=== PATIENT | female | born 1955 | race Hispanic/Latino ===

== ENCOUNTER 2017-05-24 20:29 | Inpatient (IN) | payer MEDICAID ==
--- NOTE | 2017-05-24 20:51 | C.PDOC ---
History Of Present Illness 62 year old female with a Hx of HTN and diabetes who presents to the ER with a complaint of feeling SOB on exertion over the past few days that has been progressively getting worse. Patient states she feels winded when attempting to walk and notes she has a Hx of "bronchitis" but denies ever having a Hx of asthma or symptoms of wheezing. Patient also reports she has had pain and swelling to the feet that is better in the mornings but progressively worsens throughout the day. Patient denies symptoms of chest pain, nausea, or vomiting. Patient's PMD is Dr. Davenport who she last saw a few weeks ago. Time Seen by Provider: 05/24/17 20:37 Chief Complaint (Nursing): Shortness Of Breath History Per: Patient History/Exam Limitations: no limitations Onset/Duration Of Symptoms: Days Current Symptoms Are (Timing): Still Present Initiating Event: Other (Not known) Exacerbating Factor(s): Other (Walking) Current Respiratory Medications: None Associated Symptoms: denies: Fever, Chills, Chest Pain, Dizziness, Light- headedness Recent travel outside of the [place] States: No Past Medical History Reviewed: Historical Data, Nursing Documentation, Vital Signs Vital Signs: Last Vital Signs Temp 98.2 F 05/24/17 20:32 Pulse 106 H 05/24/17 23:29 Resp 21 05/24/17 23:29 BP 115/74 05/24/17 23:29 Pulse Ox 96 05/25/17 00:02 - Medical History PMH: Bronchitis, Hypercholesterolemia Surgical History: No Surg Hx Family History: States: No Known Family Hx - Social History Hx Alcohol Use: No Hx Substance Use: No - Immunization History Hx Tetanus Toxoid Vaccination: No Hx Influenza Vaccination: Yes Hx Pneumococcal Vaccination: Yes Review Of Systems Except As Marked, All Systems Reviewed And Found Negative. Constitutional: Negative for: Fever, Chills, Sweats Cardiovascular: Negative for: Chest Pain Respiratory: Positive for: SOB with Excertion Gastrointestinal: Negative for: Nausea, Vomiting, Abdominal Pain, Diarrhea Physical Exam - Physical Exam Appears: Non-toxic, No Acute Distress, Other (very anxious and talking in complete sentences ) Skin: Normal Color, Warm, Dry Head: Atraumatic, Normacephalic Oral Mucosa: Moist Neck: Supple Chest: Symmetrical Cardiovascular: Rhythm Regular (tachycardic) Respiratory: Normal Breath Sounds, No Rales, No Rhonchi, No Wheezing Gastrointestinal/Abdominal: Soft, No Tenderness, No Guarding, No Rebound Extremity: Normal ROM, Pedal Edema (mild +1 nonpitting), Capillary Refill (< 2sec.) Neurological/Psych: Oriented x3, Normal Speech, Normal Cognition Gait: Steady ED Course And Treatment - Laboratory Results Result Diagrams: 05/24/17 21:18 05/24/17 21:18 Lab Interpretation: Abnormal (WBC 13.5, D-dimer 3105, BNP 5650, troponin normal) ECG: Interpreted By Me ECG Rhythm: Sinus Tachycardia (with poor R wave progression V1-5, Q wave III, AVF) ECG Interpretation: Abnormal O2 Sat by Pulse Oximetry: 96 (RA) Pulse Ox Interpretation: Normal - Radiology CXR: Interpreted by Me CXR Interpretation: Yes: Mediastinum (wide with fullnes in hilum bilaterally) - CT Scan/US CTA Other Rad Studies (CT/US): Read By Radiologist, Radiology Report Reviewed CT/US Interpretation: EXAM: CT Chest With Intravenous Contrast. CLINICAL HISTORY: 62 years old, female; Signs and symptoms; Shortness of breath; Additional info: SOB, tachycardia,. elevated d-dimer. TECHNIQUE: Axial computed tomography images of the chest with intravenous contrast during the arterial phase. of enhancement. All CT scans at this facility use one or more dose reduction techniques, viz.: automated exposure control; ma/kV adjustment per patient size (including targeted exams where. dose is matched to indication ; i.e. head); or iterative reconstruction technique. Coronal and sagittal reformatted images were created and reviewed. CONTRAST: 100 mL of VISIPAQUE 320 administered intravenously. COMPARISON: No relevant prior studies available. FINDINGS: Pulmonary arteries: Multiple filling defects within main , lobar, segmental, subsegmental branches. Saddle embolus. Aorta: No aneurysm. No dissection. Lungs: No consolidation. Pleural space: No significant effusion. No pneumothorax. Heart: No cardiomegaly. Trace focal pericardial effusion. Bones/joints: No acute fracture. No dislocation. Soft tissues: Unremarkable. Lymph nodes: No pathologically enlarged lymph nodes. Liver: Too small to characterize lesion. IMPRESSION: 1. Multiple pulmonary emboli with saddle embolus. 2. Incidental/non-acute findings are described above. Progress Note: The patient received EKG, Blood work,UA and CxR. Reevaluation Time: 00:00 Reassessment Condition: Unchanged - Physician Consult Information Outcome Of Conversation: Case discussed with Dr Stone and Dr Francis. Patient to be admitted to ICU for bilateral PE with saddle embolus. Disposition - Disposition Disposition: HOSPITALIZED Disposition Time: 00:09 Condition: SERIOUS - POA Present On Arrival: None - Clinical Impression Clinical Impression: Pulmonary embolism - Scribe Statement The provider has reviewed the documentation as recorded by the Scribjarred Monge All medical record entries made by the Tarahibjarred were at my direction and personally dictated by me. I have reviewed the chart and agree that the record accurately reflects my personal performance of the history, physical exam, medical decision making, and the department course for this patient. I have also personally directed, reviewed, and agree with the discharge instructions and disposition.
[2017-05-24 21:23] LABS: BASO # 0.1 K/uL (0.0-0.2); BASO % 0.6 % (0.0-2.0); EOS # 0.2 K/uL (0.0-0.7); EOS % 1.2 % (0.0-4.0); LYMPH # 3.7 K/uL (1.0-4.3); LYMPH % 27.2 % (20.0-40.0); MEAN CELL VOLUME 85.1 fL (81.0-99.0); MEAN CORPUSCULAR HEMOGLOBIN 28.7 pg (27.0-31.0); MEAN CORPUSCULAR HGB CONC 33.7 g/dL (33.0-37.0); MEAN PLATELET VOLUME 7.4 fL (7.2-11.7); MONO # 0.8 K/uL (0.0-0.8); MONO % 5.7 % (0.0-10.0); NRBC % 0.1 % (0.0-2.0); RED CELL DISTRIBUTION WIDTH 14.7 % (11.5-14.5); WHITE BLOOD COUNT 13.5 K/uL (4.8-10.8)
[2017-05-24 21:29] LABS: CHLORIDE 105 mmol/L (98-107)
[2017-05-24 21:30] LABS: POTASSIUM 3.4 mmol/L (3.6-5.2); SODIUM 145 mmol/L (132-148)
[2017-05-24 21:32] LABS: ALB/GLOB RATIO 1.2 (1.0-2.1); AST/SGOT 30 U/L (14-36); BILIRUBIN,TOTAL 0.4 mg/dL (0.2-1.3); CARBON DIOXIDE 24 mmol/L (22-30); GFR AFRICAN-AMERICAN > 60; TOTAL PROTEIN 7.8 g/dL (6.3-8.3)
[2017-05-24 21:33] LABS: ALKALINE PHOSPHATASE 96 U/L (38-126); ALT/SGPT 33 U/L (9-52); BLOOD UREA NITROGEN 11 mg/dL (7-17); CALCIUM 9.1 mg/dl (8.6-10.4); GLUCOSE,RANDOM 104 mg/dL (65-105)
[2017-05-24] MEDS ORDERED: Iodixanol 320 MG/ML 100 ML BOTTLE IV ONE (22:26)
[2017-05-24 22:52] LABS: RBC URINE 1 /hpf (0-3); TRANSITIONAL EPITHIAL < 1 /hpf (0-3); URINE BACTERIA RARE (<OCC); URINE BILIRUBIN NEGATIVE (NEGATIVE); URINE BLOOD NEGATIVE (NEGATIVE); URINE COLOR Yellow (YELLOW); URINE GLUCOSE (UA) NORMAL (Normal); URINE KETONE NEGATIVE (NEGATIVE); URINE LEUKOCYTE ESTERASE 1+ Leu/uL (Negative); URINE PROTEIN 1+ mg/dL (NEGATIVE); URINE UROBILINOGEN NORMAL mg/dL (0.2-1.0); WBC URINE 6 /hpf (0-5)
--- NOTE | 2017-05-24 23:34 | CT ---
EXAM: CT Chest With Intravenous Contrast CLINICAL HISTORY: 62 years old, female; Signs and symptoms; Shortness of breath; Additional info: SOB, tachycardia, elevated d-dimer TECHNIQUE: Axial computed tomography images of the chest with intravenous contrast during the arterial phase of enhancement. All CT scans at this facility use one or more dose reduction techniques, viz.: automated exposure control; ma/kV adjustment per patient size (including targeted exams where dose is matched to indication; i.e. head); or iterative reconstruction technique. Coronal and sagittal reformatted images were created and reviewed. CONTRAST: 100 mL of VISIPAQUE 320 administered intravenously. COMPARISON: No relevant prior studies available. FINDINGS: Pulmonary arteries: Multiple filling defects within main, lobar, segmental, subsegmental branches. Saddle embolus. Aorta: No aneurysm. No dissection. Lungs: No consolidation. Pleural space: No significant effusion. No pneumothorax. Heart: No cardiomegaly. Trace focal pericardial effusion. Bones/joints: No acute fracture. No dislocation. Soft tissues: Unremarkable. Lymph nodes: No pathologically enlarged lymph nodes. Liver: Too small to characterize lesion. IMPRESSION: 1. Multiple pulmonary emboli with saddle embolus. 2. Incidental/non-acute findings are described above. THIS REPORT CONTAINS FINDINGS THAT MAY BE CRITICAL TO PATIENT CARE. The findings were verbally communicated via telephone conference with Farzaneh Harris at 11:34 PM EDT on 05/24/2017. The findings were acknowledged and understood.
[2017-05-24] MEDS ORDERED: Heparin25000 units/250ml 1/2NS 250 ML IV ONE (23:50)
[2017-05-24] MEDS ORDERED: Heparin25000 units/250ml 1/2NS 25,000 UNITS/250 ML BAG IV PRN (23:59)
[2017-05-25 00:22] LABS: INR 1.2
--- NOTE | 2017-05-25 01:33 | CP.PCM.CON ---
History of Present Illness - History of Present Illness History of Present Illness: 62 F with h/o NIDDM, hyperlypidimia came to ER due to SOB started last afternoon , felt very sob, holding wall of the store where she was, felt some dizzy. In ER patient was tachycardic, positive Ddimer. CTA done showed saddle embolus, RV appears dialated cavity then LV. BP has been maintained, hr sinus 110-120b/m. Patient since presented to ER has also been mentioning that she may have to leave in the morning to feed her cats but agrees to stay overnight. Denies any recent immobility, had some mild diarrhea, complains of chronic pain for 1-2 months in the right calf. Patient also mentions her father form blood clot travelling form the back of the leg to chest. PMH as above Meds for dm 2 pills, for hypelipidimia Allergies NKDA Family history father of PE, mom had type 1 dm, blindness, cad, from CAD age 52 Social denies smoking, social drinking, denies drugs. Review of Systems - Review of Systems All systems: reviewed and no additional remarkable complaints except (HPI) Past Patient History - Infectious Disease Hx of Infectious Diseases: None - Past Social History Smoking Status: Never Smoked Alcohol: Occasional Home Situation {Lives}: Alone (with cats) Domestic Violence: Negative - CARDIAC Hx Hypercholesterolemia: Yes - PULMONARY Hx Bronchitis: Yes - ENDOCRINE/METABOLIC Hx Diabetes Mellitus Type 2: Yes - PSYCHIATRIC Hx Substance Use: No - SURGICAL HISTORY Hx Surgeries: No - ANESTHESIA Hx Anesthesia: No Meds Allergies/Adverse Reactions: Allergies Allergy/AdvReac Type Severity Reaction Status Date / Time No Known Allergies Allergy Unverified 05/24/17 20:31 - Medications Medications: Current Medications Heparin Sodium/Sodium Chloride (Heparin 22037 Units/250ml 1/2 Normal Saline) 25 ,000 units in 250 mls @ 13.064 mls/hr IV .Q19H9M PRN; Protocol; 18 UNITS/KG/HR PRN Reason: ADJUST RATE PER PROTOCOL Last Admin: 05/25/17 00:45 Dose: 18 units/kg/hr, 13.064 mls/hr Physical Exam - Additional Findings Additional findings: * HEENT RUDOLPH * Neck Supple * CVS Regular, tachycardia * Chest Clear, no rales no wheezes * PA soft, nt, bs present * Ext no edema * TEXTILE DESIGNER awake oriented x3 no fnd. Results - Vital Signs Recent Vital Signs: Last Vital Signs Temp 98.2 F 05/24/17 20:32 Pulse 106 H 05/24/17 23:29 Resp 21 05/24/17 23:29 BP 115/74 05/24/17 23:29 Pulse Ox 96 05/25/17 00:09 - Labs Result Diagrams: 05/24/17 21:18 05/24/17 21:18 Labs: Laboratory Results - last 24 hr 05/25/17 00:05 PT 13.3 H INR 1.2 Assessment & Plan - Assessment and Plan (Free Text) Assessment: * Acute saddle embolus with dilated rv on CTA * Family history of PE * NIDDM * Social issues patient has hard time staying in the hospital overnight but currently agreed to stay. Plan: * Anitcoagulation, started heparin drip in ER * Possible EKOS * Venous doppler * Echo * Troponin * NPO * GI prophylaxis * See orders for detail.
--- NOTE | 2017-05-25 04:19 | CP.PCM.HP ---
History of Present Illness - History of Present Illness History of Present Illness: CC: SOB HPI: Patient is a 62 year old female with past medical history of HTN and DM, who presents to the ED via ambulance with complaints of shortness of breath and right calf pain that started a month ago. Patient states she ignored her symptoms since it was not too bothersome. However, patient states that her shortness of breath progressively worsened around 2pm yesterday and was unable to walk a block without being short of breath, which is not her normal baseline. Patient she noted increased shortness of breath as she was walking back from the grocery store to her house. Patient stated that she had to hold on to the badillo as she walked home. Patient stated that after getting home, she ate and went to bed. However, she continued to be short of breath and started to hyperventilate; patient then called a friend, who urged her to come to the hospital. Patient denies fever, diaphoresis, chest pain, chest pain with inspiration, abdominal pain, nausea, vomiting, constipation, hemoptysis, recent travels, LE numbness and tingling but admits to chills, dizziness, SOB, diarrhea , right calf pain> left calf pain. PMD: Davenport PMHx: DM, HTN, Anxiety, Bipolar PSHx: Denies FHx: Mother (DM, at 52), Father ( at 57 due complication for pulmonary embolism) Medications: (Patient does not remember) Allergies: NKDA Social Hx: Lives with cats, Retired. Denies tobacco, ETOH and illicit drug use Medications given in the ED: Heparin bolus (5,800), 2L NC Present on Admission - Present on Admission Any Indicators Present on Admission: No Review of Systems - Constitutional Constitutional: Chills, Headache. absent: Fever, Night Sweats - EENT Ears: Dizziness - Cardiovascular Cardiovascular: Claudication, Diaphoresis, Dyspnea, Dyspnea on Exertion, Leg Edema, Lightheadedness. absent: Chest Pain, Chest Pain at Rest, Chest Pain with Activity, Palpitations - Respiratory Respiratory: Dyspnea, Dyspnea on Exertion. absent: Cough, Hemoptysis - Gastrointestinal Gastrointestinal: absent: Abdominal Pain, Change in Bowel Habits, Coffee Ground Emesis, Constipation, Diarrhea, Nausea, Vomiting - Genitourinary Genitourinary: absent: Dysuria, Urinary Frequency, Urinary Urgency - Neurological Neurological: Dizziness. absent: Syncope - Psychiatric Psychiatric: Anxiety - Endocrine Endocrine: absent: Palpitations Past Patient History - Infectious Disease Hx of Infectious Diseases: None - Past Medical History & Family History Past Medical History?: Yes - Past Social History Smoking Status: Never Smoked - CARDIAC Hx Hypercholesterolemia: Yes - PULMONARY Hx Bronchitis: Yes - ENDOCRINE/METABOLIC Hx Diabetes Mellitus Type 2: Yes - MUSCULOSKELETAL/RHEUMATOLOGICAL Hx Falls: No - PSYCHIATRIC Hx Substance Use: No - SURGICAL HISTORY Hx Surgeries: No - ANESTHESIA Hx Anesthesia: No Meds Allergies/Adverse Reactions: Allergies Allergy/AdvReac Type Severity Reaction Status Date / Time No Known Allergies Allergy Unverified 05/24/17 20:31 Physical Exam - Constitutional Appears: No Acute Distress - Head Exam Head Exam: ATRAUMATIC - Eye Exam Eye Exam: EOMI, Normal appearance - Respiratory Exam Respiratory Exam: Clear to Auscultation Bilateral, NORMAL BREATHING PATTERN. absent: Rales, Wheezes - Cardiovascular Exam Cardiovascular Exam: Tachycardia, REGULAR RHYTHM, +S1, +S2 - GI/Abdominal Exam GI & Abdominal Exam: Normal Bowel Sounds, Soft - Extremities Exam Extremities exam: Positive for: calf tenderness Additional comments: Right calf tenderness> left calf tenderness - Back Exam Back exam: absent: CVA tenderness (L), CVA tenderness (R) - Neurological Exam Neurological exam: Alert, Oriented x3 - Psychiatric Exam Psychiatric exam: Anxious - Skin Skin Exam: Normal Color, Warm Results - Vital Signs Recent Vital Signs: Last Vital Signs Temp 97.3 F L 05/25/17 02:15 Pulse 109 H 05/25/17 02:40 Resp 28 H 05/25/17 02:40 BP 117/80 05/25/17 02:30 Pulse Ox 97 05/25/17 02:40 - Labs Result Diagrams: 05/25/17 06:19 05/25/17 06:19 Labs: Laboratory Results - last 24 hr 05/25/17 05/25/17 00:05 01:01 PT 13.3 H INR 1.2 APTT 28 Assessment & Plan (1) Pulmonary embolism Assessment and Plan: On admission: * Well criteria : 7.5 * Troponin: 0.0480, 0.0430, * D-dimer: 3105 * BNP: 5650 - Admitted to the ICU Imaging: CT Chest: Multiple pulmonary emboli with saddle embolus. EKG: Sinus tachycardia, for complete result, please refer to chart Medications: Heparin 5800 units bolus Heparin Drip -NPO -F/u venous doppler -F/u Echo Status: Acute (2) Prophylactic measure Assessment and Plan: Protonix 40mg PO daily SCDs: contraindicated as patient has possible DVT leading to the PE Anticoagulation therapy: Heparin Drip Status: Acute
[2017-05-25 06:30] LABS: BASO # 0.1 K/uL (0.0-0.2); BASO % 0.6 % (0.0-2.0); EOS # 0.1 K/uL (0.0-0.7); EOS % 0.9 % (0.0-4.0); HEMATOCRIT 33.6 % (34.0-47.0); LYMPH # 5.1 K/uL (1.0-4.3); LYMPH % 32.2 % (20.0-40.0); MEAN CELL VOLUME 85.8 fL (81.0-99.0); MEAN CORPUSCULAR HEMOGLOBIN 28.7 pg (27.0-31.0); MEAN CORPUSCULAR HGB CONC 33.5 g/dL (33.0-37.0); MEAN PLATELET VOLUME 8.1 fL (7.2-11.7); MONO # 0.8 K/uL (0.0-0.8); MONO % 5.2 % (0.0-10.0); WHITE BLOOD COUNT 15.9 K/uL (4.8-10.8)
[2017-05-25 06:34] LABS: INR 1.2
[2017-05-25 06:40] LABS: CHLORIDE 108 mmol/L (98-107); SODIUM 142 mmol/L (132-148)
[2017-05-25 06:42] LABS: GFR AFRICAN-AMERICAN > 60
[2017-05-25 06:43] LABS: ALKALINE PHOSPHATASE 92 U/L (38-126); ALT/SGPT 33 U/L (9-52); AST/SGOT 24 U/L (14-36); BILIRUBIN,TOTAL 0.4 mg/dL (0.2-1.3); BLOOD UREA NITROGEN 9 mg/dL (7-17); CARBON DIOXIDE 21 mmol/L (22-30); GLUCOSE,RANDOM 92 mg/dL (65-105); PHOSPHOROUS 3.5 mg/dL (2.5-4.5); TOTAL PROTEIN 6.5 g/dL (6.3-8.3)
[2017-05-25 06:44] LABS: CALCIUM 8.2 mg/dl (8.6-10.4); MAGNESIUM 1.8 mg/dL (1.6-2.3)
--- NOTE | 2017-05-25 09:40 | RAD ---
PROCEDURE: CHEST RADIOGRAPH, 1 VIEW HISTORY: SOB COMPARISON: None available. FINDINGS: LUNGS: Clear. PLEURA: No pneumothorax or pleural fluid seen. CARDIOVASCULAR: Normal. OSSEOUS STRUCTURES: No significant abnormalities. VISUALIZED UPPER ABDOMEN: Normal. OTHER FINDINGS: None. IMPRESSION: No active disease. If clinically warranted further assessment by CT may be obtained.
[2017-05-25] MEDS: Potassium Chl 40 mEq in D5-1/2 1,000 ML IV SCH (09:51)
[2017-05-25] MEDS: Pantoprazole 40 mg EC Tab PO SCH (10:00)
[2017-05-25 11:15] LABS: ABG ALLEN TEST POS; ARTERIAL BLOOD HGB O2 SAT 95.7 % (95.0-98.0); CARBOXYHEMOGLOBIN 1.3 % (0.5-1.5); DRAW SITE RR; HHB 1.6 % (0.0-5.0); METHEMOGLOBIN 1.4 % (0.0-3.0)
[2017-05-25] MEDS ORDERED: Midazolam 2 MG/2 ML VIAL ONE (12:00)
[2017-05-25] MEDS ORDERED: Iodixanol 320 MG/ML 200 ML BOTTLE IV ONE (12:03)
[2017-05-25] MEDS ORDERED: Etomidate 20 mg/10ml Inj IV ONE ×2 (12:04)
[2017-05-25] MEDS ORDERED: Iodixanol 320 MG/ML 100 ML BOTTLE IV ONE ×2 (12:07→12:40)
[2017-05-25] MEDS ORDERED: Heparin25000 units/250ml 1/2NS 25,000 UNITS/250 ML BAG IV ONE (12:20)
--- NOTE | 2017-05-25 18:56 | CP.CCUPN ---
CCU Subjective - Physician Review Subjective (Free Text): Patient seen and examined at bedside. In no acute distress. Patient anxious about being in hospital. S/p EKOS with Dr Arambula. Patient with no complaints, doing well post procedure. Denies cp, sob, diarrhea, n/v, f/c, d/c. 05/25/17 18:53 CCU Objective - Vital Signs / Intake & Output Vital Signs (Last 4 hours): Vital Signs Temp Pulse Resp BP Pulse Ox 05/25/17 18:15 108 H 26 H 112/76 05/25/17 18:00 109 H 20 129/78 05/25/17 17:46 129/77 05/25/17 17:45 109 H 25 H 99 05/25/17 17:40 108 H 26 H 98 05/25/17 17:31 110 H 27 H 127/83 98 05/25/17 17:30 108 H 27 H 97 05/25/17 17:20 108 H 29 H 98 05/25/17 17:16 107 H 26 H 122/82 99 05/25/17 17:10 119 H 35 H 05/25/17 17:01 109 H 28 H 126/79 98 05/25/17 17:00 110 H 25 H 124/73 97 05/25/17 16:50 108 H 19 94 L 05/25/17 16:46 108 H 27 H 124/73 96 05/25/17 16:40 107 H 23 94 L 05/25/17 16:31 104 H 25 H 112/78 96 05/25/17 16:30 103 H 22 93 L 05/25/17 16:20 105 H 23 95 05/25/17 16:16 106 H 21 113/74 95 05/25/17 16:15 98 F 105 H 23 110/73 05/25/17 16:10 104 H 25 H 96 05/25/17 16:01 106 H 25 H 110/73 93 L 05/25/17 16:00 97.8 F 106 H 24 93 L 05/25/17 15:50 108 H 24 97 05/25/17 15:45 109 H 25 H 119/76 05/25/17 15:40 110 H 29 H 96 05/25/17 15:31 109 H 24 123/76 95 05/25/17 15:30 110 H 25 H 97 05/25/17 15:20 108 H 25 H 95 05/25/17 15:16 108 H 24 119/76 96 05/25/17 15:15 108 H 22 135/93 H 05/25/17 15:10 110 H 25 H 99 05/25/17 15:01 110 H 22 135/93 H 97 05/25/17 15:00 110 H 25 H 97 Intake and Output (Last 8hrs): Intake & Output 05/25/17 05/25/17 05/25/17 06:59 14:59 22:59 Intake Total 180.4 1192.8 1594.8 Balance 180.4 1192.8 1594.8 Weight 158 lb Intake: IV 128 Intake, IV Amount 52.4 692.8 334.8 Left Hand 81.2 34.8 Right Antecubital 52.4 611.6 300 Oral 500 1260 Other: # Voids Urine, Voided 0 0 # Bowel Movements 0 0 - Physical Exam Head: Positive for: Atraumatic Pupils: Positive for: PERRL Extroacular Muscles: Positive for: EOMI Mouth: Positive for: Moist Mucous Membranes Neck: Positive for: Normal Range of Motion Respiratory/Chest: Positive for: Wheezes Cardiovascular: Positive for: Regular Rate and Rhythm, Normal S1, S2 Abdomen: Positive for: Normal Bowel Sounds. Negative for: Tenderness Upper Extremity: Positive for: Normal Inspection Lower Extremity: Positive for: Normal Inspection Neurological: Positive for: Speech Normal Skin: Positive for: Warm, Dry, Normal Color Psychiatric: Positive for: Oriented x 3 - Medications Active Medications: Active Medications Generic Name Dose Route Start Last Admin Trade Name Freq PRN Reason Stop Dose Admin Apixaban 5 mg 05/26/17 10:00 Eliquis PO DAILY FRANK Heparin Sodium/Sodium Chloride 25,000 units in 250 mls @ 13.064 mls/hr 23:59 05/25/17 06:58 Heparin 35957 Units/250ml 1/2 Normal Saline IV 16 units/kg/hr .Q19H9M PRN 11.612 mls/hr ADJUST RATE PER PROTOCOL Titration Protocol 18 UNITS/KG/HR Potassium Chloride/Dextrose/Sod Cl 1,000 mls @ 100 mls/hr 05/25/17 09:00 10/10 09:51 Potassium Chl 40 Meq In D5-1/2ns IV 100 mls/hr .Q10H FRANK Administration Alteplase, Recombinant 10 mg/ 250 mls @ 25 mls/hr 05/25/17 12:33 05/25/17 14: 00 Sodium Chloride IV 05/25/17 21:59 Not Given ONCE ONE Pantoprazole Sodium 40 mg 05/25/17 10:00 05/25/17 10:00 Protonix Ec Tab PO Not Given DAILY FRANK - Patient Studies Lab Studies: Lab Studies 05/25/17 05/25/17 05/25/17 Range/Units 16:10 13:47 11:41 WBC (4.8-10.8) K/uL RBC (3.80-5.20) Mil/uL Hgb (11.0-16.0) g/dL Hct (34.0-47.0) % MCV (81.0-99.0) fL MCH (27.0-31.0) pg MCHC (33.0-37.0) g/dL RDW (11.5-14.5) % Plt Count (130-400) K/uL MPV (7.2-11.7) fL Neut % (Auto) (50.0-75.0) % Lymph % (Auto) (20.0-40.0) % [place] % (Auto) (0.0-10.0) % Eos % (Auto) (0.0-4.0) % Baso % (Auto) (0.0-2.0) % Neut # (1.8-7.0) K/uL Lymph # (1.0-4.3) K/uL [place] # (0.0-0.8) K/uL Eos # (0.0-0.7) K/uL Baso # (0.0-0.2) K/uL PT (9.7-12.2) SECONDS INR APTT 82 H D (21-34) SECONDS Puncture Site pCO2 (35-45) mm/Hg pO2 (80-100) mm/Hg HCO3 (21-28) mmol/L ABG pH (7.35-7.45) ABG Total CO2 (22-28) mmol/L ABG O2 Saturation (95-98) % ABG Base Excess (-2.0-3.0) mmol/L ABG Hemoglobin (11.7-17.4) g/dL ABG Carboxyhemoglobin (0.5-1.5) % POC ABG HHb (Measured) (0.0-5.0) % ABG Methemoglobin (0.0-3.0) % Aditya Test A-a O2 Difference mm/Hg Respiratory Index Hgb O2 Saturation (95.0-98.0) % Liter Flow FiO2 % Sodium (132-148) mmol/L Potassium (3.6-5.2) mmol/L Chloride (98-107) mmol/L Carbon Dioxide (22-30) mmol/L Anion Gap (10-20) BUN (7-17) mg/dL Creatinine (0.7-1.2) MG/DL Est GFR ( Amer) Est GFR (Non-Af Amer) POC Glucose (mg/dL) 117 H 121 H (65-110) mg/dL Random Glucose (65-105) mg/dL Calcium (8.6-10.4) mg/dl Phosphorus (2.5-4.5) mg/dL Magnesium (1.6-2.3) mg/dL Total Bilirubin (0.2-1.3) mg/dL AST (14-36) U/L ALT (9-52) U/L Alkaline Phosphatase (38-126) U/L Troponin I (0.00-0.120) ng/mL Total Protein (6.3-8.3) g/dL Albumin (3.5-5.0) g/dL Globulin (2.2-3.9) gm/dL Albumin/Globulin Ratio (1.0-2.1) 05/25/17 05/25/17 05/25/17 Range/Units 11:11 06:19 06:19 WBC (4.8-10.8) K/uL RBC (3.80-5.20) Mil/uL Hgb (11.0-16.0) g/dL Hct (34.0-47.0) % MCV (81.0-99.0) fL MCH (27.0-31.0) pg MCHC (33.0-37.0) g/dL RDW (11.5-14.5) % Plt Count (130-400) K/uL MPV (7.2-11.7) fL Neut % (Auto) (50.0-75.0) % Lymph % (Auto) (20.0-40.0) % [place] % (Auto) (0.0-10.0) % Eos % (Auto) (0.0-4.0) % Baso % (Auto) (0.0-2.0) % Neut # (1.8-7.0) K/uL Lymph # (1.0-4.3) K/uL [place] # (0.0-0.8) K/uL Eos # (0.0-0.7) K/uL Baso # (0.0-0.2) K/uL PT 13.8 H (9.7-12.2) SECONDS INR 1.2 APTT 99 H D (21-34) SECONDS Puncture Site Rr pCO2 29 L (35-45) mm/Hg pO2 99 (80-100) mm/Hg HCO3 22.7 (21-28) mmol/L ABG pH 7.45 (7.35-7.45) ABG Total CO2 21.1 L (22-28) mmol/L ABG O2 Saturation 98.4 H (95-98) % ABG Base Excess -2.8 L (-2.0-3.0) mmol/L ABG Hemoglobin 11.5 L (11.7-17.4) g/dL ABG Carboxyhemoglobin 1.3 (0.5-1.5) % POC ABG HHb (Measured) 1.6 (0.0-5.0) % ABG Methemoglobin 1.4 (0.0-3.0) % Aditya Test Pos A-a O2 Difference 100.0 mm/Hg Respiratory Index 1.0 Hgb O2 Saturation 95.7 (95.0-98.0) % Liter Flow 4.0 FiO2 33.0 % Sodium 142 (132-148) mmol/L Potassium 3.0 L (3.6-5.2) mmol/L Chloride 108 H (98-107) mmol/L Carbon Dioxide 21 L (22-30) mmol/L Anion Gap 16 (10-20) BUN 9 (7-17) mg/dL Creatinine 0.5 L (0.7-1.2) MG/DL Est GFR ( Amer) > 60 Est GFR (Non-Af Amer) > 60 POC Glucose (mg/dL) (65-110) mg/dL Random Glucose 92 (65-105) mg/dL Calcium 8.2 L (8.6-10.4) mg/dl Phosphorus 3.5 (2.5-4.5) mg/dL Magnesium 1.8 (1.6-2.3) mg/dL Total Bilirubin 0.4 (0.2-1.3) mg/dL AST 24 (14-36) U/L ALT 33 (9-52) U/L Alkaline Phosphatase 92 (38-126) U/L Troponin I 0.0430 (0.00-0.120) ng/mL Total Protein 6.5 (6.3-8.3) g/dL Albumin 3.2 L D (3.5-5.0) g/dL Globulin 3.3 (2.2-3.9) gm/dL Albumin/Globulin Ratio 1.0 (1.0-2.1) 05/25/17 05/25/17 05/25/17 Range/Units 06:19 01:01 00:05 WBC 15.9 H (4.8-10.8) K/uL RBC 3.91 (3.80-5.20) Mil/uL Hgb 11.2 (11.0-16.0) g/dL Hct 33.6 L (34.0-47.0) % MCV 85.8 (81.0-99.0) fL MCH 28.7 (27.0-31.0) pg MCHC 33.5 (33.0-37.0) g/dL RDW 15.0 H (11.5-14.5) % Plt Count 255 (130-400) K/uL MPV 8.1 (7.2-11.7) fL Neut % (Auto) 61.1 (50.0-75.0) % Lymph % (Auto) 32.2 (20.0-40.0) % [place] % (Auto) 5.2 (0.0-10.0) % Eos % (Auto) 0.9 (0.0-4.0) % Baso % (Auto) 0.6 (0.0-2.0) % Neut # 9.7 H (1.8-7.0) K/uL Lymph # 5.1 H (1.0-4.3) K/uL [place] # 0.8 (0.0-0.8) K/uL Eos # 0.1 (0.0-0.7) K/uL Baso # 0.1 (0.0-0.2) K/uL PT 13.3 H (9.7-12.2) SECONDS INR 1.2 APTT 28 (21-34) SECONDS Puncture Site pCO2 (35-45) mm/Hg pO2 (80-100) mm/Hg HCO3 (21-28) mmol/L ABG pH (7.35-7.45) ABG Total CO2 (22-28) mmol/L ABG O2 Saturation (95-98) % ABG Base Excess (-2.0-3.0) mmol/L ABG Hemoglobin (11.7-17.4) g/dL ABG Carboxyhemoglobin (0.5-1.5) % POC ABG HHb (Measured) (0.0-5.0) % ABG Methemoglobin (0.0-3.0) % Aditya Test A-a O2 Difference mm/Hg Respiratory Index Hgb O2 Saturation (95.0-98.0) % Liter Flow FiO2 % Sodium (132-148) mmol/L Potassium (3.6-5.2) mmol/L Chloride (98-107) mmol/L Carbon Dioxide (22-30) mmol/L Anion Gap (10-20) BUN (7-17) mg/dL Creatinine (0.7-1.2) MG/DL Est GFR ( Amer) Est GFR (Non-Af Amer) POC Glucose (mg/dL) (65-110) mg/dL Random Glucose (65-105) mg/dL Calcium (8.6-10.4) mg/dl Phosphorus (2.5-4.5) mg/dL Magnesium (1.6-2.3) mg/dL Total Bilirubin (0.2-1.3) mg/dL AST (14-36) U/L ALT (9-52) U/L Alkaline Phosphatase (38-126) U/L Troponin I (0.00-0.120) ng/mL Total Protein (6.3-8.3) g/dL Albumin (3.5-5.0) g/dL Globulin (2.2-3.9) gm/dL Albumin/Globulin Ratio (1.0-2.1) Laboratory Results - last 24 hr 05/25/17 05/25/17 05/25/17 00:05 01:01 06:19 WBC 15.9 H RBC 3.91 Hgb 11.2 Hct 33.6 L MCV 85.8 MCH 28.7 MCHC 33.5 RDW 15.0 H Plt Count 255 MPV 8.1 Neut % (Auto) 61.1 Lymph % (Auto) 32.2 [place] % (Auto) 5.2 Eos % (Auto) 0.9 Baso % (Auto) 0.6 Neut # 9.7 H Lymph # 5.1 H [place] # 0.8 Eos # 0.1 Baso # 0.1 PT 13.3 H INR 1.2 APTT 28 Puncture Site pCO2 pO2 HCO3 ABG pH ABG Total CO2 ABG O2 Saturation ABG Base Excess ABG Hemoglobin ABG Carboxyhemoglobin POC ABG HHb (Measured) ABG Methemoglobin Aditya Test A-a O2 Difference Respiratory Index Hgb O2 Saturation Liter Flow FiO2 Sodium Potassium Chloride Carbon Dioxide Anion Gap BUN Creatinine Est GFR ( Amer) Est GFR (Non-Af Amer) POC Glucose (mg/dL) Random Glucose Calcium Phosphorus Magnesium Total Bilirubin AST ALT Alkaline Phosphatase Troponin I Total Protein Albumin Globulin Albumin/Globulin Ratio 05/25/17 05/25/17 05/25/17 06:19 06:19 11:11 WBC RBC Hgb Hct MCV MCH MCHC RDW Plt Count MPV Neut % (Auto) Lymph % (Auto) [place] % (Auto) Eos % (Auto) Baso % (Auto) Neut # Lymph # [place] # Eos # Baso # PT 13.8 H INR 1.2 APTT 99 H D Puncture Site Rr pCO2 29 L pO2 99 HCO3 22.7 ABG pH 7.45 ABG Total CO2 21.1 L ABG O2 Saturation 98.4 H ABG Base Excess -2.8 L ABG Hemoglobin 11.5 L ABG Carboxyhemoglobin 1.3 POC ABG HHb (Measured) 1.6 ABG Methemoglobin 1.4 Aditya Test Pos A-a O2 Difference 100.0 Respiratory Index 1.0 Hgb O2 Saturation 95.7 Liter Flow 4.0 FiO2 33.0 Sodium 142 Potassium 3.0 L Chloride 108 H Carbon Dioxide 21 L Anion Gap 16 BUN 9 Creatinine 0.5 L Est GFR ( Amer) > 60 Est GFR (Non-Af Amer) > 60 POC Glucose (mg/dL) Random Glucose 92 Calcium 8.2 L Phosphorus 3.5 Magnesium 1.8 Total Bilirubin 0.4 AST 24 ALT 33 Alkaline Phosphatase 92 Troponin I 0.0430 Total Protein 6.5 Albumin 3.2 L D Globulin 3.3 Albumin/Globulin Ratio 1.0 05/25/17 05/25/17 05/25/17 11:41 13:47 16:10 WBC RBC Hgb Hct MCV MCH MCHC RDW Plt Count MPV Neut % (Auto) Lymph % (Auto) [place] % (Auto) Eos % (Auto) Baso % (Auto) Neut # Lymph # [place] # Eos # Baso # PT INR APTT 82 H D Puncture Site pCO2 pO2 HCO3 ABG pH ABG Total CO2 ABG O2 Saturation ABG Base Excess ABG Hemoglobin ABG Carboxyhemoglobin POC ABG HHb (Measured) ABG Methemoglobin Aditya Test A-a O2 Difference Respiratory Index Hgb O2 Saturation Liter Flow FiO2 Sodium Potassium Chloride Carbon Dioxide Anion Gap BUN Creatinine Est GFR ( Amer) Est GFR (Non-Af Amer) POC Glucose (mg/dL) 121 H 117 H Random Glucose Calcium Phosphorus Magnesium Total Bilirubin AST ALT Alkaline Phosphatase Troponin I Total Protein Albumin Globulin Albumin/Globulin Ratio Fingerstick Blood Sugar Results: 119 Review of Systems - Constitutional Constitutional: absent: Fever, Chills, Sweats - Cardiovascular Cardiovascular: absent: Chest Pain, Diaphoresis - Respiratory Respiratory: absent: Cough, Dyspnea - Gastrointestinal Gastrointestinal: absent: Abdominal Pain, Constipation, Diarrhea - Genitourinary Genitourinary: absent: Difficulty Urinating Critical Care Progress Note - Nutrition Nutrition: Nutrition Category Date Time Status Heart Healthy Diet [DIET] Diets 05/25/17 Lunch Active Assessment/Plan - Assessment and Plan (Free Text) Assessment: Assessment: * Acute saddle embolus with dilated rv on CTA s/p EKOS * Family history of PE * NIDDM * Social issues patient has hard time staying in the hospital overnight but currently agreed to stay. Plan: * s/p EKOS procedure with Dr Arambula * apixaban 5mg po daily * Venous doppler * Echo, F/U official read * Troponins negative * heart healthy diet * GI prophylaxis * See orders for detail.
[2017-05-26] MEDS: Potassium Chl 40 mEq in D5-1/2 1,000 ML IV SCH ×2 (00:39→06:45)
[2017-05-26 06:23] LABS: BASO # 0.1 K/uL (0.0-0.2); BASO % 0.8 % (0.0-2.0); EOS # 0.2 K/uL (0.0-0.7); EOS % 1.5 % (0.0-4.0); LYMPH # 2.8 K/uL (1.0-4.3); LYMPH % 22.2 % (20.0-40.0); MEAN CELL VOLUME 85.3 fL (81.0-99.0); MEAN CORPUSCULAR HEMOGLOBIN 28.7 pg (27.0-31.0); MEAN CORPUSCULAR HGB CONC 33.6 g/dL (33.0-37.0); MEAN PLATELET VOLUME 7.7 fL (7.2-11.7); MONO # 0.7 K/uL (0.0-0.8); MONO % 5.6 % (0.0-10.0); WHITE BLOOD COUNT 12.4 K/uL (4.8-10.8)
[2017-05-26 06:25] LABS: INR 1.5
[2017-05-26 06:40] LABS: ALKALINE PHOSPHATASE 87 U/L (38-126); ALT/SGPT 33 U/L (9-52); AST/SGOT 25 U/L (14-36); BILIRUBIN,TOTAL 0.4 mg/dL (0.2-1.3); BLOOD UREA NITROGEN 5 mg/dL (7-17); CALCIUM 8.6 mg/dl (8.6-10.4); CARBON DIOXIDE 20 mmol/L (22-30); CHLORIDE 106 mmol/L (98-107); GFR AFRICAN-AMERICAN > 60; GLUCOSE,RANDOM 108 mg/dL (65-105); MAGNESIUM 1.9 mg/dL (1.6-2.3); PHOSPHOROUS 2.8 mg/dL (2.5-4.5); POTASSIUM 3.9 mmol/L (3.6-5.2); SODIUM 137 mmol/L (132-148); TOTAL PROTEIN 6.4 g/dL (6.3-8.3)
--- NOTE | 2017-05-26 07:57 | CARD ---
APPROVED REPORT EKG Measurement Heart [id number] <Conclusion> Sinus tachycardia Possible Inferior infarct, age undetermined Anterior infarct, age undetermined ST & T wave abnormality, consider lateral ischemia Abnormal ECG
[2017-05-26 08:21] VITALS: O2SAT 95
--- NOTE | 2017-05-26 09:27 | CARD ---
APPROVED REPORT EXAM: Two-dimensional and M-mode echocardiogram with Doppler and color Doppler. Other Information Quality : GoodRhythm : NSR INDICATION Dizziness and Vertigo Dyspnea PULMONARY EMBOLISM RISK FACTORS Hypertension Diabetes 2D DIMENSIONS IVSd1.0 (0.7-1.1cm)LVDd2.9 (3.9-5.9cm) PWd0.9 (0.7-1.1cm)LVDs1.8 (2.5-4.0cm) FS (%) 37.9 %LVEF (%)69.8 (>50%) M-Mode DIMENSIONS RVDd1.37 (2.1-3.2cm)Left Atrium (MM)2.76 (2.5-4.0cm) Aortic Root2.80 (2.2-3.7cm)Aortic Cusp Exc.1.60 (1.5-2.0cm) Mitral Valve MV E Wqgfzxuj28.0cm/sMV A Duwmvzwu949.3cm/sE/A ratio0.6 TDI E/Lateral E'0.0E/Medial E'0.0 Tricuspid Valve TR Peak Ggtpqpli635en/sTR Peak Gr.[id number] LEFT VENTRICLE The left ventricle cavity is small. There is normal left ventricular wall thickness. Left ventricle systolic function is normal. The Ejection Fraction is >70%. There is normal LV segmental wall motion. The left ventricular diastolic function is abnormal. Transmitral Doppler flow pattern is Grade I-abnormal relaxation pattern. No left ventricle thrombus noted on this study. RIGHT VENTRICLE The right ventricle is normal size. The right ventricular systolic function is normal. ATRIA The left atrium size is normal. The right atrium size is normal. AORTIC VALVE The aortic valve is thickened. The aortic valve is trileaflet. No aortic regurgitation is present. There is no aortic valvular stenosis. There is no aortic valvular vegetation. MITRAL VALVE Mitral annular calcification is mild to moderate. There is no evidence of mitral valve prolapse. There is no mitral valve stenosis. There is no mitral valve regurgitation noted. TRICUSPID VALVE The tricuspid valve is normal in structure. There is moderate to severe tricuspid regurgitation. Right ventricular systolic pressure is estimated at greater than 60 mmHg. There is moderate to severe pulmonary hypertension. There is no tricuspid valve prolapse or vegetation. There is no tricuspid valve stenosis. PULMONIC VALVE The pulmonic valve is not well visualized. There is no pulmonic valvular regurgitation. GREAT VESSELS The aortic root is normal in size. The IVC collapses <50% with inspiration. PERICARDIAL EFFUSION There is no pericardial effusion. There is no pleural effusion. <Conclusion> The left ventricle cavity is small. Left ventricle systolic function is normal. The Ejection Fraction is >70%. The left ventricular diastolic function is abnormal. Transmitral Doppler flow pattern is Grade I-abnormal relaxation pattern. The right ventricle is normal size. The right ventricular systolic function is normal. The left atrium size is normal. The right atrium size is normal. There is moderate to severe tricuspid regurgitation. There is moderate to severe pulmonary hypertension.
[2017-05-26] MEDS: Pantoprazole 40 mg EC Tab PO SCH (10:04)
[2017-05-26 13:00] VITALS: BP 139/81; PULSE 106; RESP 23
[2017-05-26 13:04] VITALS: TEMP 98.7
--- NOTE | 2017-05-26 20:55 | CP.PCM.DIS ---
Provider - Provider Date of Admission: 05/25/17 00:01 Attending physician: Mike Stone Jr, MD Primary care physician: Rajeev Davenport MD Time Spent in preparation of Discharge (in minutes): 40 Hospital Course - Lab Results Lab Results: Micro Results 05/25/17 06:00 Naris MRSA Culture (Admit) - Final MRSA NOT DETECTED Most Recent Lab Values WBC 12.4 K/uL (4.8-10.8) H 05/26/17 06:13 RBC 3.87 Mil/uL (3.80-5.20) 05/26/17 06:13 Hgb 11.1 g/dL (11.0-16.0) 05/26/17 06:13 Hct 33.0 % (34.0-47.0) L 05/26/17 06:13 MCV 85.3 fL (81.0-99.0) 05/26/17 06:13 MCH 28.7 pg (27.0-31.0) 05/26/17 06:13 MCHC 33.6 g/dL (33.0-37.0) 05/26/17 06:13 RDW 15.0 % (11.5-14.5) H 05/26/17 06:13 Plt Count 281 K/uL (130-400) 05/26/17 06:13 MPV 7.7 fL (7.2-11.7) 05/26/17 06:13 Neut % (Auto) 69.9 % (50.0-75.0) 05/26/17 06:13 Lymph % (Auto) 22.2 % (20.0-40.0) 05/26/17 06:13 [place] % (Auto) 5.6 % (0.0-10.0) 05/26/17 06:13 Eos % (Auto) 1.5 % (0.0-4.0) 05/26/17 06:13 Baso % (Auto) 0.8 % (0.0-2.0) 05/26/17 06:13 Neut # 8.7 K/uL (1.8-7.0) H 05/26/17 06:13 Lymph # 2.8 K/uL (1.0-4.3) 05/26/17 06:13 [place] # 0.7 K/uL (0.0-0.8) 05/26/17 06:13 Eos # 0.2 K/uL (0.0-0.7) 05/26/17 06:13 Baso # 0.1 K/uL (0.0-0.2) 05/26/17 06:13 PT 17.3 SECONDS (9.7-12.2) H 05/26/17 06:13 INR 1.5 05/26/17 06:13 APTT 29 SECONDS (21-34) D 05/26/17 06:13 D-Dimer, Quantitative 3105 ng/mlDDU (0-243) H 05/24/17 21:18 Puncture Site Rr 05/25/17 11:11 pCO2 29 mm/Hg (35-45) L 05/25/17 11:11 pO2 99 mm/Hg (80-100) 05/25/17 11:11 HCO3 22.7 mmol/L (21-28) 05/25/17 11:11 ABG pH 7.45 (7.35-7.45) 05/25/17 11:11 ABG Total CO2 21.1 mmol/L (22-28) L 05/25/17 11:11 ABG O2 Saturation 98.4 % (95-98) H 05/25/17 11:11 ABG Base Excess -2.8 mmol/L (-2.0-3.0) L 05/25/17 11:11 ABG Hemoglobin 11.5 g/dL (11.7-17.4) L 05/25/17 11:11 ABG Carboxyhemoglobin 1.3 % (0.5-1.5) 05/25/17 11:11 POC ABG HHb (Measured) 1.6 % (0.0-5.0) 05/25/17 11:11 ABG Methemoglobin 1.4 % (0.0-3.0) 05/25/17 11:11 Aditya Test Pos 05/25/17 11:11 A-a O2 Difference 100.0 mm/Hg 05/25/17 11:11 Respiratory Index 1.0 05/25/17 11:11 Hgb O2 Saturation 95.7 % (95.0-98.0) 05/25/17 11:11 Liter Flow 4.0 05/25/17 11:11 FiO2 33.0 % 05/25/17 11:11 Sodium 137 mmol/L (132-148) 05/26/17 06:14 Potassium 3.9 mmol/L (3.6-5.2) 05/26/17 06:14 Chloride 106 mmol/L (98-107) 05/26/17 06:14 Carbon Dioxide 20 mmol/L (22-30) L 05/26/17 06:14 Anion Gap 15 (10-20) 05/26/17 06:14 BUN 5 mg/dL (7-17) L 05/26/17 06:14 Creatinine 0.5 MG/DL (0.7-1.2) L 05/26/17 06:14 Est GFR ( Amer) > 60 05/26/17 06:14 Est GFR (Non-Af Amer) > 60 05/26/17 06:14 POC Glucose (mg/dL) 119 mg/dL (65-110) H 05/26/17 07:12 Random Glucose 108 mg/dL (65-105) H 05/26/17 06:14 Calcium 8.6 mg/dl (8.6-10.4) 05/26/17 06:14 Phosphorus 2.8 mg/dL (2.5-4.5) 05/26/17 06:14 Magnesium 1.9 mg/dL (1.6-2.3) 05/26/17 06:14 Total Bilirubin 0.4 mg/dL (0.2-1.3) 05/26/17 06:14 AST 25 U/L (14-36) 05/26/17 06:14 ALT 33 U/L (9-52) 05/26/17 06:14 Alkaline Phosphatase 87 U/L (38-126) 05/26/17 06:14 Troponin I 0.0430 ng/mL (0.00-0.120) 05/25/17 06:19 NT-Pro-B Natriuret Pep 5650 pg/mL (0-900) H 05/24/17 21:18 Total Protein 6.4 g/dL (6.3-8.3) 05/26/17 06:14 Albumin 3.3 g/dL (3.5-5.0) L 05/26/17 06:14 Globulin 3.2 gm/dL (2.2-3.9) 05/26/17 06:14 Albumin/Globulin Ratio 1.0 (1.0-2.1) 05/26/17 06:14 Urine Color Yellow (YELLOW) 05/24/17 22:40 Urine Clarity Clear (Clear) 05/24/17 22:40 Urine pH 5.0 (5.0-8.0) 05/24/17 22:40 Ur Specific [place] 1.020 (1.003-1.030) 05/24/17 22:40 Urine Protein 1+ mg/dL (NEGATIVE) H 05/24/17 22:40 Urine Glucose (UA) Normal mg/dL (Normal) 05/24/17 22:40 Urine Ketones Negative mg/dL (NEGATIVE) 05/24/17 22:40 Urine Blood Negative (NEGATIVE) 05/24/17 22:40 Urine Nitrate Negative (NEGATIVE) 05/24/17 22:40 Urine Bilirubin Negative (NEGATIVE) 05/24/17 22:40 Urine Urobilinogen Normal mg/dL (0.2-1.0) 05/24/17 22:40 Ur Leukocyte Esterase 1+ [place]angel/uL (Negative) H 05/24/17 22:40 Urine WBC (Auto) 6 /hpf (0-5) H 05/24/17 22:40 Urine RBC (Auto) 1 /hpf (0-3) 05/24/17 22:40 Ur Transition Epith Cell < 1 /hpf (0-3) 05/24/17 22:40 Urine Bacteria Rare (<OCC) 05/24/17 22:40 - Hospital Course Hospital Course: CC: SOB HPI: Patient is a 62 year old female with past medical history of HTN and DM, who presents to the ED via ambulance with complaints of shortness of breath and right calf pain that started a month ago. Patient states she ignored her symptoms since it was not too bothersome. However, patient states that her shortness of breath progressively worsened around 2pm yesterday and was unable to walk a block without being short of breath, which is not her normal baseline. Patient she noted increased shortness of breath as she was walking back from the grocery store to her house. Patient stated that she had to hold on to the badillo as she walked home. Patient stated that after getting home, she ate and went to bed. However, she continued to be short of breath and started to hyperventilate; patient then called a friend, who urged her to come to the hospital. Patient denies fever, diaphoresis, chest pain, chest pain with inspiration, abdominal pain, nausea, vomiting, constipation, hemoptysis, recent travels, [place] numbness and tingling but admits to chills, dizziness, SOB, diarrhea , right calf pain> left calf pain. PMD: [place] PMHx: DM, HTN, Anxiety, Bipolar PSHx: Denies FHx: Mother (DM, at 52), Father ( at 57 due complication for pulmonary embolism) Medications: (Patient does not remember) Allergies: NKDA Social Hx: Lives with cats, Retired. Denies tobacco, ETOH and illicit drug use Medications given in the ED: Heparin bolus (5,800), 2L [place] Hospital Course: Cardiology Dr. Arambula was consulted. Troponins were negative. 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 ECHO showed EF of >70%, left ventricular diastolic function is abnormal. Moderate to severe tricuspid regurgitation, moderate to severe pulmonary hypertension. Dr. Arambula performed a Cath procedure 05/25/2017. Disposition: Patient signed out against medical advice. Patient was told of all the risks of intracranial bleeding, bleeding, . Patient understood those risks and stated she would follow up with her primary doctor but she wanted to leave. Patient was given 2 weeks of Eliquis PO BID. Patient was given one dose before signing out against medical advice in the ICU. This is a brief summary of events. For a complete course, refer to the medical record. Discharge Exam - Head Exam Head Exam: ATRAUMATIC - Eye Exam Eye Exam: EOMI, Normal appearance, PERRL Pupil Exam: NORMAL ACCOMODATION - Respiratory Exam Respiratory Exam: Clear to PA & Lateral, NORMAL BREATHING PATTERN - Cardiovascular Exam Cardiovascular Exam: REGULAR RHYTHM, RRR, +S1, +S2 - GI/Abdominal Exam GI & Abdominal Exam: Normal Bowel Sounds, Soft - Neurological Exam Neurological exam: Alert, Oriented x3 - Psychiatric Exam Psychiatric exam: Anxious Discharge Plan - Follow Up Plan Condition: SERIOUS Disposition: AGAINST MEDICAL ADVICE Instructions: Pulmonary Embolism (DC), Heart Catheterization (DC)
--- NOTE | 2017-06-12 05:39 | PROCN ---
DATE: 05/25/2017 INDICATIONS: Ms. Iris Peterson is a 62-year-old female who presented on 05/24/2017 with an episode of shortness of breath. For a few days prior to presentation, she was short of breath and was diagnosed with bronchitis, but was not getting improvement with her treatment. She underwent a CT PE protocol which showed saddle embolus. I was called for concerns for saddle embolus and possible EKOS placement for treatment of PE. PROCEDURE PERFORMED: 1. Right heart catheterization. 2. Nonselective pulmonary angiogram. 3. Selective bilateral pulmonary arterial angiogram 4. 7-Palauan right femoral venous access. 5. Manual pressure for hemostasis. TECHNIQUES OF PROCEDURE: After obtaining informed consent, the patient was brought to the cardiac catheterization in post-absorptive, non-sedated state. The patient was prepped and draped in the usual sterile fashion. A 2% lidocaine was used for infiltration anesthesia. Using modified Seldinger technique, a 6-Palauan sheath was introduced into the right femoral vein. Subsequently it was upgraded to a 7-Palauan sheath. Under fluoroscopic guidance, PCWP catheter was advanced with the balloon inflated through the IVC into the RA, RV, and PA position. Saturation along with hemodynamics were obtained. Subsequently, over a 0.25 soft J-wire, the pigtail catheter was exchanged to a 6-Palauan pigtail catheter. Nonselective pulmonary angiography was obtained and then subsequently the catheter was advanced selectively into the left and right pulmonary angiogram and sub-selective angiogram of the bilateral pulmonary arterial systems were obtained. RIGHT HEART HEMODYNAMIC FINDINGS: RA mean pressure was 13 mmHg with A-wave of 22 and V of 18. RV pressures were 60/5/17. PA pressures were 39/20 with a mean PA pressure of 28 mmHg. IMPRESSION: Mild pulmonary arterial hypertension. ANGIOGRAPHIC FINDINGS: The sub-selective bilateral pulmonary angiography showed good flow in all the segments of the pulmonary arteries up to the tertiary pulmonary capillaries. IMPRESSION: No evidence of saddle embolus noted on selective pulmonary angiography and mild pulmonary hypertension. RECOMMENDATIONS: The patient is to be treated with oral anticoagulations. Consider initiation of Eliquis. The patient can be discharged home stable in 24 to 48 hours. Derrek Arambula MD MTDD
== END 2017-05-26 10:45 | disposition left against medical advice (07) | DRG 78 ==
LOC: C.ER 20:29 → SUPCPDRO 20:29 → C.9I 05-25 00:01 → C.9E 05-25 00:01
PROVIDERS: ADMIT Internal Medicine; ATTEND Internal Medicine
PROC: 4A023N6 Measurement of Cardiac Sampling and Pressure, Right Heart, Percutaneous Approach (ICD-10-PCS; principal; 2017-05-25)
PROC: B201YZZ Plain Radiography of Multiple Coronary Arteries using Other Contrast (ICD-10-PCS; 2017-05-25)
PROC: B204YZZ Plain Radiography of Right Heart using Other Contrast (ICD-10-PCS; 2017-05-25)
DX: I26.92 Saddle embolus of pulmonary artery without acute cor pulmonale (principal); I27.2 Other secondary pulmonary hypertension; I07.1 Rheumatic tricuspid insufficiency; I10 Essential (primary) hypertension; E11.9 Type 2 diabetes mellitus without complications; E78.00 Pure hypercholesterolemia, unspecified; F41.9 Anxiety disorder, unspecified; F31.9 Bipolar disorder, unspecified